=== PATIENT | male | born 1975 | race African-American/Black ===

== ENCOUNTER 2024-11-21 08:21 | Outpatient (REF) | payer OTHER, SELFPAY ==
--- NOTE | ~2024-11-21 | XR_ITS ---
CLINICAL HISTORY: M25.511 - Pain in right shoulder 3 view right shoulder Comparison: None Findings: Bones intact. No dislocations. No significant arthritic change. No erosions. No radiopaque foreign body. IMPRESSION: 1. No acute findings This document has been electronically signed by: Shree Carlton MD on 11/22/2024 08:56:49
== END 2024-11-21 08:22 | disposition home or self-care (01) ==
LOC: HO.HOSX 08:21
PROVIDERS: Visit Provider Physician Assistant
DX: M77.8 Other enthesopathies, not elsewhere classified (principal); M25.511 Pain in right shoulder
CPT/HCPCS: 73030; 99202

== ENCOUNTER 2024-11-21 08:36 | Outpatient (AMB) | payer OTHER, SELFPAY ==
--- NOTE | 2024-11-21 08:39 | MHC.OFFVIS ---
Vital Signs 11/21/24 08:54 Height 5 ft 7 in Weight 180 lb BMI 28.2 Intake Visit Reasons: ED Rt Shoulder tendonitis/ Impingement syndrome Intake Note: Maxi is a 49 year old left hand dominant male who presents today for an ER follow up of right shoulder, DOI 10/14/24. Patient presented to [facility] ER due to pain in his shoulder for 3 weeks. His pain began after lifting a heavy rug at work. He states due to his ongoing pain with no improvement he was seen at the ER. His pain is located at the top of his shoulder, states travels up his neck and down his arm, at times he has a burning sensation. His pain is worse at night time and with ROM, states pain increases the higher he lifts his arm. Denies numbness or tingling. Finds some relief with use of Tylenol, however not at night. He uses a heat pad at night. No other tx. He has been out of work for the past 3 weeks. Allergies No Known Allergies Allergy (Verified 11/21/24 08:44) Medication List - Last Reconciled 11/21/24 by Geena Gutierrez PA-C acetaminophen mg PO amlodipine 5 mg PO DAILY HPI HPI ED Rt Shoulder tendonitis/ Impingement syndrome: Details: 49-year-old male presenting with right shoulder pain, which began on October 14 during work activities involving lifting a heavy rug. The pain developed as a pull sensation during the task and persisted alongside intermittent popping noises. He maintained his work activities until three weeks ago, at which point he stopped working due to the discomfort. This has led to some improvement, particularly during nighttime. The pain is exacerbated by reaching overhead or behind the back, and although uncomfortable, he can handle carrying items like a gallon of milk. [facility] Medical History (Updated 11/21/24 @ 09:15 by Geena Gutierrez PA-C) High blood pressure Social History (Updated 11/21/24 @ 08:51 by JENNIFER Kenr) Patient Tobacco Use Status: Current everyday Tobacco user Current occupational status: employed Current occupation: manager diabetes, left hand dominant Review of Systems Const All systems reviewed & are unremarkable except as noted in HPI and below Physical Exam Vital Signs: BMI result Body Mass Index 28.2 Const General: cooperative and no acute distress Orientation/consciousness: patient oriented x3 Resp Effort & Inspection: normal respiratory effort and able to speak in complete sentences Cardio Peripheral pulses: Peripheral pulses 2+ throughout Neuro General: patient oriented x3 Extrem Other: Right shoulder normal to inspection. Range of motion is limited with forward flexion to 100 degrees. External rotation 75 internal rotation S1. Significant tenderness over the AC joint. He has a positive [place]'s. Significant weakness with rotator cuff strengthening when compared to contralateral side. Results Reviewed Results Reviewed: X-rays of the right shoulder obtained in the office today and reviewed by me show mild osteoarthritis of the glenohumeral and AC joint. Assessment & Plan Assessment & Plan (1) Right shoulder tendinitis: Code(s): M77.8 - Other enthesopathies, not elsewhere classified Category: Medical Plan: We will order an MRI for the right shoulder to assess the rotator cuff and surrounding structures for precise diagnosis. Referral to physical therapy has been made to strengthen the shoulder muscles and improve joint function. Cortisone injection will be considered if pain persists, pending patient preference after MRI results. Workmen's Compensation approval is necessary for the MRI and physical therapy, and I will provide a formal work note for documentation of current work status to remain out of work until next appt. Orders: Orders PT Evaluation and Treatment Today M77.8 - Other enthesopathies, not elsewhere classified XR shoulder RT min 2V Today M25.511 - Pain in right shoulder MR shoulder RT wo con Today M77.8 - Other enthesopathies, not elsewhere classified Coding Level of Care Code New Pt Level 3 (11306) Complex EM visit Add On G2211 Diagnoses Right shoulder tendinitis M77.8
[2024-11-21 08:54] VITALS: BMI 28.2
--- OUTSIDE RECORDS SUMMARY | 2024-11-21 09:09 | XMS_ITS ---
Author Name [facility] Organization Unknown History of Medication Use Medication Directions Dispensed Refills Start Date End Date Stat amoxicillin-clavulan ate (AUGMENTIN) 875-125 mg tablet TAKE 1 TABLET BY MOUTH EVERY 12 HOURS FOR 7 DAYS 04/30/2024 active Problems Problem Status Onset Date Problem Type Date of Resolution Source Hypertension, unspecified type active EncounterDiagnosisAct [facility] Encounters Encounter Type Encounter Reason Primary Diagnosis Location Date Ambulatory Essential (primary) hypertension Essential (primary) hypertension [facility] 05/05/2024 Care Team Organization Name Specialty Phone Email Start Date End Da te [facility] [place] 05/05/2024
== END 2024-11-21 09:22 | disposition home or self-care (01) ==
LOC: HO.HOS 08:37
PROVIDERS: Visit Provider Physician Assistant
DX: M77.8 Other enthesopathies, not elsewhere classified (principal); M75.41 Impingement syndrome of right shoulder; Z04.2 Encounter for examination and observation following work accident
CPT/HCPCS: 99203; G2211

== ENCOUNTER → 2024-11-21 08:39 | Outpatient (BNV) | payer OTHER, SELFPAY | PROVIDERS: Visit Provider Specialist | DX: M25.511 Pain in right shoulder (principal) | CPT/HCPCS: 73030 ==

== ENCOUNTER 2024-12-02 18:17 | Outpatient (REF) | payer OTHER, SELFPAY | END 2024-12-02 18:18 | disposition home or self-care (01) | LOC: HO.MRI 18:17 | PROVIDERS: Visit Provider Physician Assistant | DX: M77.8 Other enthesopathies, not elsewhere classified (principal) | CPT/HCPCS: 73221 ==

== ENCOUNTER → 2024-12-02 18:17 | Outpatient (BNV) | payer OTHER, SELFPAY | PROVIDERS: Visit Provider Radiology Diagnostic Radiology | DX: S46.011A Strain of muscle(s) and tendon(s) of the rotator cuff of right shoulder, initial encounter (principal); M75.31 Calcific tendinitis of right shoulder; M19.011 Primary osteoarthritis, right shoulder | CPT/HCPCS: 73221 ==

== ENCOUNTER 2025-01-23 13:21 | Outpatient (AMB) | payer OTHER, SELFPAY ==
--- NOTE | 2025-01-23 13:24 | A.OFFVIS_ITS ---
Vital Signs 01/23/25 13:28 Height 5 ft 7 in Weight 180 lb BMI 28.2 Intake Visit Reasons: OV- Rt Shoulder MRI review Intake Note: Maxi is a 49 year old male who presents today for a MRI review of the right shoulder. Patient reports during day his pain has been tolerable, states his pain gets worse at night. He has popping in his shoulder with ROM. He continues to attend physical therapy and believes he has 2 sessions left. He has complaints of now having left shoulder pain. Allergies No Known Allergies Allergy (Verified 01/23/25 13:31) Medication List - Last Reconciled 01/23/25 by Geena Gutierrez PA-C acetaminophen mg PO amlodipine 5 mg PO DAILY HPI HPI OV- Rt Shoulder MRI review: Details: 49 yo male returns to the office today f/u right shoulder pain sp work injury. He states he has been working with PT. Most of his pain is at night. He c/o pain and popping with reaching. He feels the ROM has improved with PT but he continues to avoid activities with the right arm due to pain. [facility] Medical History (Updated 01/23/25 @ 13:37 by Geena Gutierrez PA-C) High blood pressure Social History Patient Tobacco Use Status: Current everyday Tobacco user Current occupational status: employed Current occupation: integrated marketing manager, left hand dominant Review of Systems Const All systems reviewed & are unremarkable except as noted in HPI and below Physical Exam Vital Signs: BMI result Body Mass Index 28.2 Const General: cooperative and no acute distress Orientation/consciousness: patient oriented x3 Resp Effort & Inspection: normal respiratory effort and able to speak in complete sentences Cardio Peripheral pulses: Peripheral pulses 2+ throughout Neuro General: patient oriented x3 Extrem Other: Right shoulder normal to inspection. Full range of motion in all planes. He has some compensation with rotator cuff strengthening when compared to contralateral side. Results Reviewed Results Reviewed: MR shoulder RT wo con IMPRESSION: 1. Rim rent type tearing of the supraspinatus tendon wall thickening the bursal insertional aspect. No full-thickness tear or tendinous retraction. There is associated supraspinatus tendinopathy. 2. No definite infraspinatus tear. There is infraspinatus tendinopathy present. 3. There is tendinopathy of the subscapularis tendon without discrete tear. 4. There is moderate subacromial/subdeltoid bursitis. 5. There is moderate to severe degenerative spurring and arthritis of the AC joint, with significant undersurface spurring mildly narrowing the supraspinatus outlet. 6. There is mild degenerative arthritis in the glenohumeral joint. 7. The glenoid labrum appears grossly intact. Assessment & Plan Assessment & Plan (1) Right rotator cuff tear: Code(s): M75.101 - Unspecified rotator cuff tear or rupture of right shoulder, not specified as traumatic Category: Medical Plan: Images were reviewed with Dr. Mae today and given the findings on the MRI the plan is to proceed with physical therapy to try and a regain his full motion and strength. These injuries do typically respond well with physical therapy and modifications of activities while recovering. He will continue with current work limitations and I will see him back in 6 weeks for re-evaluation. Coding Level of Care Code Est Pt Level 3 (75607) Complex EM visit Add On G2211 Diagnoses Right rotator cuff tear M75.101
[2025-01-23 13:28] VITALS: BMI 28.2
== END 2025-01-23 13:53 | disposition home or self-care (01) ==
LOC: HO.HOS 13:21
PROVIDERS: Visit Provider Physician Assistant
DX: M75.101 Unspecified rotator cuff tear or rupture of right shoulder, not specified as traumatic (principal)
CPT/HCPCS: 99213; G2211

== ENCOUNTER → 2025-01-23 13:21 | Outpatient (BNVA) | payer OTHER, SELFPAY | PROVIDERS: Visit Provider Physician Assistant | DX: M75.101 Unspecified rotator cuff tear or rupture of right shoulder, not specified as traumatic (principal) | CPT/HCPCS: 99212 ==

== ENCOUNTER 2025-02-12 10:00 | Outpatient (RCR) | payer OTHER, SELFPAY ==
--- NOTE | 2024-12-26 10:38 | MHC.PT.EP ---
[facility] [place] Office [place] Office [place] Office [address] Mary Kim [address] [phone] F: [phone] F: [phone] F: [phone] F: [phone] Physical Therapy Plan of Care Date of Evaluation: 12/26/24 Date of Surgery: n/a Diagnosis: R shoulder tendonitis Assessment: Patient is a 49 year old male presenting to PT with complaints of pain in his R shoulder. Pt reports onset of pain began October 2024 due to carrying a rug. He presents today with impairments in pain, ROM, shoulder strength, posture. 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 Clinical presentation today is most consistent with signs and sx associated with R shoulder pain and pt will benefit from skilled PT 2 week x 4 weeks to address the following problems and impairments noted upon evaluation: pain, ROM, shoulder strength, posture. These problems limit the patient with the following functional activities: reaching, lifting, ADLS, work. The prescribed treatment plan of care is medically necessary. Co-morbidities of HTN were identified and taken into considerations of plan of care. Pt was educated on HEP, role of PT, prognosis, POC. Frequency and Duration: The patient will be seen 2 x week x 4 weeks Short Term Goals: Pt will demonstrate improved R shoulder ROM by 20 degrees in all directions in 2 weeks. Pt will demonstrate improved R shoulder MMT strength by 1/3 grade in 2 weeks. Pt will demonstrate improved posture as evidence by min to no cues during the session in 2 weeks. Blueprint Reproducer Goals: Pt will demonstrate improved SPADI score by 13 points in 4 weeks for improved functional mobility. Pt will demonstrate ability to reach with min to no pain in 4weeks for return to PLOF. Pt will demonstrate ability to lift with min to no pain in 4 weeks for improved tolerance to work activities. Treatment Plan: Modalities to reduce pain, spasms and effusion. Manual therapy to restore motion and function. Therapeutic exercise to improve strength and flexibility. Neuromuscular re-education for posture and balance. Therapeutic activities to return to functional activities of daily living. Electronically signed by: Clare Velez, PT, DPT, ATC Please sign and return to therapist. Thank you for your referral.
--- NOTE | 2025-03-28 11:52 | MHC.PT.DC ---
[facility] [place] Office [place] Office [place] Office [address] Mary Kim [address] [phone] F: [phone] F: [phone] F: [phone] F: [phone] Physical Therapy Discharge Report Diagnosis: R shoulder tendonitis Date of Surgery: n/a Date of Evaluation: 12/26/24 Date of Discharge: 03/28/25 Treatments to Date: 8 Cancellations to Date: 1 No Shows to Date: 0 Discharge Status: Patient Elected to Stop Discharge Summary: Pt presented to PT prema x 7 minutes. Pt has not attended PT for 6 weeks. Pt stating he did not attend PT because no one from this office called him to schedule him after receiving authorization for more visits. Educated pt that it is also his responsibility to check in on the status of the approval as well. Pt became defensive and argumentative stating it is not his responsibility to check in. This PT offered to continue to see him but that we have less time to use the visits until his end date due to the approval being from 02/17/2025. Pt became agitated stating we dropped the ball. This PT ended the appointment at this time due to the pt not appearing to be interested in continuing with his session. Pt stating he will do PT somewhere else and that he would like to speak to a avionics supervisor, which he was accommodated with. Pt then d/c per his request. Of note pt was also scheduled in this office 2 days ago and called to cancel his appointment due to ?work conflicts?. Electronically signed by: Clare Velez, PT, DPT, ATC Please sign and return to therapist. Thank you for your referral.
== END 2025-03-28 11:52 | disposition home or self-care (01) ==
LOC: HO.PTCHIC 10:00
PROVIDERS: Visit Provider Physician Assistant
DX: M77.8 Other enthesopathies, not elsewhere classified (principal)
CPT/HCPCS: 97110; 97140; 97161

== ENCOUNTER 2025-03-14 09:28 | Outpatient (AMB) | payer OTHER, SELFPAY ==
--- OUTSIDE RECORDS SUMMARY | 2025-03-14 09:32 | XMS_ITS ---
Author Name [facility] Organization Unknown History of Medication Use Medication Directions Dispensed Refills Start Date End Date Stat us amoxicillin-clavulan ate (AUGMENTIN) 875-125 mg tablet TAKE 1 TABLET BY MOUTH EVERY 12 HOURS FOR 7 DAYS 04/30/2024 active Problems Problem Status Onset Date Problem Type Date of Resolution Source Hypertension, unspecified type active En[facility]osisAct [facility] Encounters Encounter Type Encounter Reason Primary Diagnosis Location Date Ambulatory Essential (primary) hypertension Essential (primary) hypertension [facility] [place] 05/05/2024 Care Team Organization Name Specialty Phone Email Start Date End Da te [facility] [place] 05/05/2024
--- NOTE | 2025-03-14 09:35 | A.OFFVIS_ITS ---
Vital Signs 03/14/25 09:43 Height 5 ft 7 in Weight 180 lb BMI 28.2 Intake Visit Reasons: OV-6wk f/u right shoulder s/p PT Intake Note: Maxi is a 50 year old male who presents today for a follow up of workers comp injury of right rotator cuff tear, DOI 10/14/24. At last visit he was to proceed with physical therapy, continue current work limitations and follow up in 6 weeks. Patient reports that therapy provided a little relief. He states ongoing discomfort that increases at night. Allergies No Known Allergies Allergy (Verified 03/14/25 09:43) Medication List - Last Reconciled 03/14/25 by Geena Gutierrez PA-C acetaminophen mg PO amlodipine 5 mg PO DAILY HPI HPI OV-6wk f/u right shoulder s/p PT: Details: 50-year-old gentleman returns to the office today for a follow-up right shoulder status post work injury on 10/14/2024 while carrying a rug. He states since his last visit he only had 2 additional appointments with physical therapy. He was told by the therapy office workman's comp was not improving anymore visits and he was told they would call him once they had approval but never heard anything further. Patient states there is some improvement in the shoulder but he has significant discomfort at night. He is unable to perform activities overhead with weight. [facility] Medical History (Updated 01/23/25 @ 13:37 by Geena Gutierrez PA-C) High blood pressure Social History Patient Tobacco Use Status: Current everyday Tobacco user Current occupational status: employed Current occupation: commercial finance manager, left hand dominant Review of Systems Const All systems reviewed & are unremarkable except as noted in HPI and below Physical Exam Vital Signs: BMI result Body Mass Index 28.2 Const General: cooperative and no acute distress Orientation/consciousness: patient oriented x3 Resp Effort & Inspection: normal respiratory effort and able to speak in complete sentences Cardio Peripheral pulses: Peripheral pulses 2+ throughout Neuro General: patient oriented x3 Extrem Other: Right shoulder full range of motion in all planes. He does have significant weakness with empty can and belly press compared to contralateral side. Pain along the proximal biceps tendon which radiates into the deltoid region. Office Procedures AMB Joint Injection/Aspiration Joint Injection/Aspiration Primary Site: right shoulder Prep: site was prepped using aseptic technique, ethochloride spray was applied and injection warnings given Injected: 80 mg of, DepoMedrol, with 8 mL of, 1% plain lidocaine and in the subcromial space Approach Used: posterolateral Coding 06657 - Glenohumeral/Tronchanteric Bursa/Intraarticular Procedure code (CPT) selection complete Assessment & Plan Assessment & Plan (1) Right shoulder tendinitis: Code(s): M77.8 - Other enthesopathies, not elsewhere classified Category: Medical (2) Right rotator cuff tear: Code(s): M75.101 - Unspecified rotator cuff tear or rupture of right shoulder, not spe cified as traumatic Category: Medical Plan Given his continued discomfort primarily at nighttime we decided to proceed with a right shoulder steroid injection which the patient tolerated well. I did place a new order for physical therapy to see if we can get him to continue working with them improve his strength. In the meantime he will continue with his light duty restrictions at work of desk work only. I will see him back in 8 weeks for routine follow up, sooner if needed. Coding Level of Care Code Est Pt Level 3 (63559) Complex EM visit Add On G2211 Diagnoses Right shoulder tendinitis M77.8 Right rotator cuff tear M75.101 CPT Codes Coding - Joint 7: 69891 - Glenohumeral/Tronchanteric Bursa/Intraarticular ([id number])
[2025-03-14 09:43] VITALS: BMI 28.2
== END 2025-03-14 10:10 | disposition home or self-care (01) ==
LOC: HO.HOS 09:28
PROVIDERS: Visit Provider Physician Assistant
DX: M77.8 Other enthesopathies, not elsewhere classified (principal); M75.101 Unspecified rotator cuff tear or rupture of right shoulder, not specified as traumatic
CPT/HCPCS: 20610; 99213

== ENCOUNTER → 2025-03-14 09:28 | Outpatient (BNVA) | payer OTHER, SELFPAY | PROVIDERS: Visit Provider Physician Assistant | DX: M25.511 Pain in right shoulder (principal); M77.8 Other enthesopathies, not elsewhere classified; M75.101 Unspecified rotator cuff tear or rupture of right shoulder, not specified as traumatic | CPT/HCPCS: 20610; 99212; J1010; J2003 ==

== ENCOUNTER 2025-04-23 15:20 | Outpatient (AMB) | payer OTHER, SELFPAY ==
--- NOTE | 2025-04-23 15:24 | A.OFFVIS_ITS ---
Vital Signs 04/23/25 15:30 Height 5 ft 7 in Weight 180 lb BMI 28.2 Intake Visit Reasons: OV-rt rotator cuff tear, WC DOI 10/14/24 Intake Note: Maxi is a 50 year old male who presents today for a follow up of workers comp injury of right rotator cuff tear, DOI 10/14/24. At last visit he was to attend physical therapy and an injection was given. He will continues with light duty restrictions, desk work only. Today patient reports that has not attended physical therapy due to conflict at [employer]. His therapy was sent to [facility] and will begin May,. States pain in his shoulder with sleeping. He has been avoiding use of his arm. He would like to discuss work status. Allergies No Known Allergies Allergy (Verified 04/23/25 15:29) Medication List - Last Reconciled 04/24/25 by Geena Gutierrez PA-C acetaminophen mg PO amlodipine 5 mg PO DAILY HPI HPI OV-rt rotator cuff tear, WC DOI 10/14/24: Details: 50-year-old gentleman presents to the office today for a follow-up right shoulder. Date of injury 10/14/2024. He has been out of work since the date of injury. He has been working with physical therapy but there was some miscommunication with scheduling so he has missed some time from therapy. [facility] Medical History (Updated 01/23/25 @ 13:37 by Geena Gutierrez PA-C) High blood pressure Social History (Reviewed 04/23/25 @ 15:30 by Venita Edwards [facility]) Patient Tobacco Use Status: Current everyday Tobacco user Current occupational status: employed Current occupation: manager of operations, left hand dominant Review of Systems Const All systems reviewed & are unremarkable except as noted in HPI and below Physical Exam Vital Signs: BMI result Body Mass Index 28.2 Const General: cooperative and no acute distress Orientation/consciousness: patient oriented x3 Resp Effort & Inspection: normal respiratory effort and able to speak in complete sentences Cardio Peripheral pulses: Peripheral pulses 2+ throughout Neuro General: patient oriented x3 Extrem Other: Right shoulder full range of motion in all planes. Right side has some mild weakness compared to contralateral side however he is able to activate cuff. Assessment & Plan Assessment & Plan (1) Right rotator cuff tear: Code(s): M75.101 - Unspecified rotator cuff tear or rupture of right shoulder, not specified as traumatic Category: Medical Plan: Patient was encouraged to continue with his physical therapy exercises. He feels as though he is ready to return to work and I do agree that he should attempt returning to work. He will return without restrictions as he is able to do most activities without limitations. If there is any questions or concerns he will contact our office otherwise follow up as needed. Coding Level of Care Code Est Pt Level 3 (41758) Complex EM visit Add On G2211 Diagnoses Right rotator cuff tear M75.101
[2025-04-23 15:30] VITALS: BMI 28.2
== END 2025-04-23 15:47 | disposition home or self-care (01) ==
LOC: HO.HOS 15:21
PROVIDERS: Visit Provider Physician Assistant
DX: M75.101 Unspecified rotator cuff tear or rupture of right shoulder, not specified as traumatic (principal)
CPT/HCPCS: 99213; G2211

== ENCOUNTER → 2025-04-23 15:20 | Outpatient (BNVA) | payer OTHER, SELFPAY | PROVIDERS: Visit Provider Physician Assistant | DX: M75.101 Unspecified rotator cuff tear or rupture of right shoulder, not specified as traumatic (principal) | CPT/HCPCS: 99212 ==